=== PATIENT | female | born 1935 | race Hispanic/Latino ===

== ENCOUNTER 2017-06-16 23:30 | Inpatient (IN) | payer MEDICARE ==
[2017-06-16 23:38] VITALS: O2SAT 99
--- NOTE | 2017-06-16 23:44 | ED PDOC ---
Psych Transfer Clearance - Clearance Statement Clearance Statement: Reviewed vital signs, lab results and transfer papers. Patient clinically stable for psychiatric admission.
[2017-06-17] MEDS ORDERED: Magnesium Hydroxide Susp 30 ml UD PO PRN (00:20)
[2017-06-17] MEDS ORDERED: Alum-Mag Hydrox-Simethicone Susp (30 mL) PO PRN (00:20)
[2017-06-17] MEDS ORDERED: Bismuth Subsalicylate 262 mg/15 ml Sus (240 ml) PO PRN (00:20)
--- NOTE | 2017-06-17 00:42 | PCM.BM ---
<Fabricio Rodrigez - Last Filed: 06/17/17 00:38> Treatment Plan Problems - Problems identified on initial assessmt Hopelessness/Helplessness Date Initiated: 06/17/17 Time Initiated: 00:39 Assessment reference: NA Status: Active Treatment assets and liabiliti Patient Assests: adapts well, cooperative, resourceful, self-reliant, ADL independent, good support system, negotiates basic needs Patient Liabilities: medical problems - Milieu Protocol Maintain good personal hygiene: every shift Encourage regular showers, every shift Remind patient to perform daily oral care, every shift Assist patient to perform ADL's Maintain personal safety: daily Educate patient to report safety concerns to staff, daily Monitor environment for contraband/sharps Medication safety: Monitor for expected outcome, potential side effects: daily, Assess barriers to learning: daily, Assess readiness for medication education: daily <Estefani Fernández - Last Filed: 06/18/17 09:19> - Diagnosis (1) Major depressive disorder Status: Acute Interventions: Medication management, Individual and group therapy, Psychoeducation 06/18/17 09:19 <Caitlyn Love - Last Filed: 06/18/17 15:42> Family Contact Family involvement: Family/SO is involved Family contact: Patient agrees to contact, Family has been contacted by patient , Telephone contact initiated by staff Family contact name: Niyah - daughter Family contacted how many times per week?: 2 Family contact comment: [phone] - Outside Agency Dr. Trell Waters MD Care involvment: Information-sharing Agency contact number: - Goals for Treatment Patient goals for treatment: Pt to be encouraged to attend activity and clinical groups 3-5x per week to identify at least 2 contributing factors to depression and suicide attempt. Psycho-education to be provided to patient/ family regarding benefits of medications and treatment adherence. Pt to be encouraged to participate in group milieu to develop effective coping skills to reduce depression and free of suicide ideation. Coordinate discharge resource needs by providing referral for psychiatric treatment follow up in the community. Discharge/Continuing Care - Education Needs Education Needs: Family Medication, Family Diagnosis/Disease Process, Family Community resources, Family Activities of Daily Living, Family Aftercare Safety Plan, Patient Medication, Patient Diagnosis/Disease Process, Patient Community resources, Patient Activities of Daily Living, Patient Aftercare Safety Plan - Discharge Discharge Criteria: Tolerates medication w/o severe side effects, Free of Suicidal thoughts, Normal sleep pattern, Ability to care for self, Reduction of target symptoms Discharge to:: Home - Additional Comments 06/18/17 15:34 Pt seen and discussed in team meeting. Reason for hospitalization reviewed and discussed. Pt reported feeling depressed for 20 years; however, worsened since her one year ago. Pt also reported feeling highly anxious and lonely at home. Pt reported that her anxiety has gotten to bad that there are times she feels hopeless and helpless. Pt reported passive wishes in the past due to worsened anxiety. Pt's medications reviewed and discussed. Pt's social and medical issues reviewed and discussed. Pt reported being linked to a psychiatrist [facility], Dr. Jt MD. Pt reported medication and tx compliance. Tx plan reviewed and discussed. pt agreeable. SW to contact daughter for collateral. [employer] will continue to follow case. - Treatment Team Participation Discussed with Family/SO: No Was Patient/Family/SO present at Treatment Team Meeting: Yes
[2017-06-17 08:08] LABS: HEMOGLOBIN 13.8 g/dL (12.0-16.0); MEAN CELL VOLUME 94.5 fl (81.0-99.0); MEAN CORPUSCULAR HEMOGLOBIN 32.2 pg (27.0-31.0); RBC 4.29 Mil/uL (3.80-5.20); RED CELL DISTRIBUTION WIDTH 14.2 % (11.5-14.5); WHITE BLOOD COUNT 8.5 K/uL (4.8-10.8)
[2017-06-17 08:31] LABS: T4 8.89 ug/dl (5.5-11.0)
[2017-06-17 08:35] LABS: IRON 49 ug/dL (37-170)
[2017-06-17 08:40] LABS: ALB/GLOB RATIO 1.5 (1.0-2.1); ALBUMIN 3.7 g/dL (3.5-5.0); ALT/SGPT 41 U/L (9-52); AST/SGOT 18 U/L (14-36); BLOOD UREA NITROGEN 20 mg/dl (7-17); CALCIUM 9.2 mg/dL (8.4-10.2); GFR AFRICAN-AMERICAN > 60; GFR NON-AFRICAN AMERICAN > 60; HDL CHOLESTEROL 37 MG/DL (30-70); LDL CHOLESTEROL 83 mg/dL (0-129)
[2017-06-17 08:44] LABS: % IRON SATURATION 19 % (20-55); TOTAL IRON BINDING CAPACITY 265 ug/dL (250-450)
[2017-06-17] MEDS: Levothyroxine 88 MCG TAB PO SCH (11:33)
--- NOTE | 2017-06-17 17:00 | PCM.PSYCH ---
Initial Psychiatric Evaluation - Initial Psychiatric Evaluation Type of Admission: Voluntary Legal Status: Capacity Chief Complaint (in patient's own words): i am very anxious Patient's Reaction to Hospitalization: pt is upset History of Present Illness and Precipitating Events: This is the t [facility] admission for this 82 yr old female with h/o depression and anxiety and was hospitalized twice at [facility] in past month once for severe anxiety and depression and was prescribed wellbutrin ,seroquel and remeron which pt claims has not been working and pt has been increasingly anxious with panic attacks in past week and was seen by psychiatrist on sunday and sent to [facility] because pt has been having thoughts about overdosing on her pills.pt reports the of a year ago as a trigger and feels lonely and overwhelmed with depression and panic attacks in past week pt reports h/o suicidal attempt by overdose 3 years ago Current Medications: Active Medications Generic Name Dose Route Start Last Admin Trade Name Freq PRN Reason Stop Dose Admin Acetaminophen 650 mg 06/17/17 00:20 Tylenol 325mg Tab PO Q4 PRN Pain, moderate (4-7) Al Hydrox/Mg Hydrox/Simethicone 30 ml 06/17/17 00:20 Maalox Plus 30 Ml PO Q4 PRN Dyspepsia Atorvastatin Calcium 40 mg 06/17/17 22:00 Lipitor PO HS DANITA Bismuth Subsalicylate 524 mg 06/17/17 00:20 Pepto-Bismol PO Q4 PRN Diarrhea Docusate Sodium 200 mg 06/17/17 09:00 06/17/17 11:32 Colace PO 200 mg DAILY DANITA Administration Home Med 0.1 mg 06/17/17 09:00 Estradiol [Estrace] VG DAILY DANITA Levothyroxine Sodium 88 mcg 06/17/17 06:30 06/17/17 11:33 Synthroid PO 88 mcg DAILY@0630 DANITA Administration Lorazepam 0.5 mg 06/17/17 00:20 Ativan PO 07/01/17 00:21 HS PRN Insomnia Lorazepam 0.5 mg 06/17/17 00:20 06/17/17 11:32 Ativan PO 07/01/17 00:21 0.5 mg Q6 PRN Administration Anixety/Agitation Magnesium Hydroxide 30 ml 06/17/17 00:20 Milk Of Magnesia PO HS PRN Constipation Sennosides 17.2 mg 06/17/17 22:00 Senokot Tab PO HS DANITA Past Psychiatric History - Past Psychiatric History Previous Treatment History: Inpatient At [facility]: [facility] Nature of Treatment: for depression History of Abuse: pt denies History of ETOH/Drug Use: pt denies History of Family Illness: not known Pertinent Medical Hx (Current Medical&Sleep Prob, Allergies): Allergies Allergy/AdvReac Type Severity Reaction Status Date / Time No Known Allergies Allergy Verified 06/16/17 23:35 Atorvastatin [Lipitor] 40 mg PO 06/17/17 Bupropion HCl [Wellbutrin XL] 300 mg PO 06/17/17 Docusate [Colace] 200 mg PO 06/17/17 Estradiol [Estrace] 0.1 mg VG 06/17/17 Levothyroxine [Synthroid] 88 mcg PO 06/17/17 Mirtazapine [Remeron Soltab] 45 mg PO 06/17/17 QUEtiapine [SEROquel] 300 mg PO 06/17/17 Sennosides [Senna Laxative] 17.2 mg PO 06/17/17 Review of Systems - Review of Systems All systems: reviewed and no additional remarkable complaints except Mental Status Examination - Personal Presentation Personal Presentation: Looks stated age - Affect Affect: Constricted - Motor Activity Motor Activity: Calm - Reliability in Providing Information Reliability in Providing Information: Fair - Speech Speech: Relevant - Mood Mood: Anxious - Formal Thought Process Formal Thought Process: No Impairment - Obsessions/Compulsions Obsessions: No Compulsions: No - Cognitive Functions Orientation: Person, Place, Situation, Time Attention/Concentration: Easily distracted Abstract Thinking: As evidence by abstract perception of proverbs Estimate of Intelligence: Average Judgement: Imparied, as evidence by: Poor judgement, Imparied, as evidence by: Lack of insight into illness DSM 5 DX - DSM 5 DSM 5 Diagnosis: Major depression,recurrent severe without psychotic features - Recommended/Plan of Treatment Treatment Recommendations and Plan of Treatment: Pt has agreed to start cymbalta 30 mg as it helped her in past and will continue remeron 30 mg hs and will d/c wellbutrin as it was making her more anxious and did not help and will engage pt in therapy and groups. hospitalist consult.
[2017-06-17 19:00] LABS: FOLATE 14.5 ng/mL
[2017-06-17] MEDS: ESTRADIOL VG SCH (21:14)
[2017-06-17 21:47] LABS: SQUAMOUS EPITHIAL 1 /hpf (0-5); URINE BILIRUBIN NEGATIVE (NEGATIVE); URINE BLOOD NEGATIVE (NEGATIVE); URINE CLARITY SLIGHTY-CLOUDY (Clear); URINE COLOR YELLOW (YELLOW); URINE GLUCOSE (UA) NEG (Normal); URINE LEUKOCYTE ESTERASE NEG Leu/uL (Negative); URINE PROTEIN NEGATIVE (NEGATIVE); URINE UROBILINOGEN 0.2-1.0 mg/dL (0.2-1.0)
[2017-06-18] MEDS: Levothyroxine 88 MCG TAB PO SCH (06:05)
[2017-06-18] MEDS: ESTRADIOL VG SCH (09:10)
[2017-06-18] MEDS: TRIMETHOPRIM 100 MG PO SCH (09:11)
--- NOTE | 2017-06-18 11:31 | PCM.PYCHPN ---
Psychiatric Progress Note - Psychiatric Progress Note Patient seen today, length of contact: Patient evaluated, case discussed with team, chart reviewed Patient Chief Complaint: Patient reports that she continues to feel depressed and anxious. She does not recall which medications she took in the past. She states that she is afraid that if she has a panic attack at home that she will want to do something like overdose on pills. She reports a history of suicide attempt by overdose. She states that she feels lonely at home but is uncertain if she wants to move in with her son. Medication Change: No Medical Record Reviewed: Yes Consults ordered or reviewed: Medicine consult Mental Status Examination - Cognitive Function Orientation: Person, Place, Situation, Time Memory: Impaired Fund of Knowledge: WNL Decription of patient's judgement and insights: Poor I/J - Mood Mood: Depressed, Anxious - Affect Affect: Constricted, Depressed - Speech Speech: Appropriate - Formal Thought Process Formal Thought Process: No Impairment Psychotic Thoughts and Behaviors: NO AH/VH/paranoia/delusions - Suicidal Ideation Suicidal Ideation: No - Homicidal Ideation Homicidal Ideation: No Goal/Treatment Plan - Goal/Treatment Plan Need for Continued Stay: Remain at risks for inpatient hospitalization, Severe depression anxiety, Discharge may exacerbated symptoms Progress Toward Problem(s) and Goals/Treatment Plan: Major Depressive Disorder; Generalized Anxiety Disorder -Continue Remeron and Cymbalta -Will consider treatment with a benzodiazepine -Individual and group therapy -Medication management -Obtain collateral history -Disposition planning Estimated Date of D/C: 06/25/17
[2017-06-19] MEDS: Levothyroxine 88 MCG TAB PO SCH (07:53)
[2017-06-19] MEDS: TRIMETHOPRIM 100 MG PO SCH (08:40)
[2017-06-19] MEDS: ESTRADIOL VG SCH (08:41)
--- NOTE | 2017-06-19 10:14 | PCM.PYCHPN ---
Psychiatric Progress Note - Psychiatric Progress Note Patient seen today, length of contact: Patient evaluated, case discussed with team, chart reviewed Patient Chief Complaint: I'm depressed Problems Identified/Issues Discussed: Patient reports that she continues to feel depressed and anxious. She feels lonely at home and is worried about harming herself if she is discharged from the hospital. He reports difficulty getting anxious thoughts out of her head. Medication Change: No Medical Record Reviewed: Yes Consults ordered or reviewed: Medicine consult Mental Status Examination - Cognitive Function Orientation: Person, Place, Situation, Time Memory: Impaired Fund of Knowledge: WNL Decription of patient's judgement and insights: Poor I/J - Mood Mood: Depressed, Anxious - Affect Affect: Constricted, Depressed - Speech Speech: Appropriate - Formal Thought Process Formal Thought Process: No Impairment Psychotic Thoughts and Behaviors: NO AH/VH/paranoia/delusions - Suicidal Ideation Suicidal Ideation: No - Homicidal Ideation Homicidal Ideation: No Goal/Treatment Plan - Goal/Treatment Plan Need for Continued Stay: Remain at risks for inpatient hospitalization, Severe depression anxiety, Discharge may exacerbated symptoms Progress Toward Problem(s) and Goals/Treatment Plan: Major Depressive Disorder; Generalized Anxiety Disorder -Continue Remeron and Cymbalta -Will consider treatment with a benzodiazepine -Individual and group therapy -Medication management -Obtain collateral history -Disposition planning Estimated Date of D/C: 06/25/17
--- NOTE | 2017-06-20 08:37 | PCM.PYCHPN ---
Psychiatric Progress Note - Psychiatric Progress Note Patient seen today, length of contact: Patient evaluated, case discussed with team, chart reviewed Patient Chief Complaint: I'm depressed Problems Identified/Issues Discussed: Patient reports that she continues to feel depressed and anxious. She is anxious about what will happen when she leaves the hospital. Collateral history obtained from family by MONIQUE and case discussed w/ patient's family. Medication Change: No Medical Record Reviewed: Yes Consults ordered or reviewed: Medicine consult Mental Status Examination - Cognitive Function Orientation: Person, Place, Situation, Time Memory: Impaired Fund of Knowledge: WNL Decription of patient's judgement and insights: Poor I/J - Mood Mood: Depressed, Anxious - Affect Affect: Constricted, Depressed - Speech Speech: Appropriate - Formal Thought Process Formal Thought Process: No Impairment Psychotic Thoughts and Behaviors: NO AH/VH/paranoia/delusions - Suicidal Ideation Suicidal Ideation: No - Homicidal Ideation Homicidal Ideation: No Goal/Treatment Plan - Goal/Treatment Plan Need for Continued Stay: Remain at risks for inpatient hospitalization, Severe depression anxiety, Discharge may exacerbated symptoms Progress Toward Problem(s) and Goals/Treatment Plan: Major Depressive Disorder; Generalized Anxiety Disorder -Continue Remeron and Cymbalta -Will consider treatment with a benzodiazepine -Individual and group therapy -Medication management -Obtain collateral history -Disposition planning Estimated Date of D/C: 06/25/17
[2017-06-20] MEDS: Levothyroxine 88 MCG TAB PO SCH (08:52)
[2017-06-20] MEDS: ESTRADIOL VG SCH (08:54)
[2017-06-20] MEDS: TRIMETHOPRIM 100 MG PO SCH (08:54)
--- NOTE | 2017-06-20 12:12 | CP.PCM.CON ---
History of Present Illness - History of Present Illness History of Present Illness: " I am very anxious" This is an 82 year old female with past medicah history of hypercholesterolemia , hypothyroidism, anxiety, arthritis, and depression, who presented to the ED due to panic attacks and suicidal ideation. Currently the patient states that she feels well and has had no recent illnesses. She relates that she is still feeling very anxious and depressed. Physically she has no complaints and states she feels well. Review of Systems - Review of Systems Review of Systems: A 12 point review of systems was conducted and found to be negative other than what was mentioned in the HPI. Past Patient History - Infectious Disease Hx of Infectious Diseases: None - Past Medical History & Family History Past Medical History?: Yes Past Family History: Reviewed and not pertinent Pertinent Family History: Brother had IN and CVA in his 80's - Past Social History Smoking Status: Never Smoked Alcohol: None Drugs: Denies - CARDIAC Other/Comment: hyperlipidemia - PULMONARY Hx Respiratory Disorders: No - NEUROLOGICAL Hx Neurological Disorder: No - HEENT Hx HEENT Problems: No - RENAL Hx Chronic Kidney Disease: No - ENDOCRINE/METABOLIC Hx Hypothyroidism: Yes - HEMATOLOGICAL/ONCOLOGICAL Hx Blood Disorders: No - INTEGUMENTARY Hx Dermatological Problems: No - MUSCULOSKELETAL/RHEUMATOLOGICAL Hx Musculoskeletal Disorders: Yes Hx Arthritis: Yes (toes of right foot) Hx Falls: Yes - GASTROINTESTINAL Hx Gastrointestinal Disorders: Yes Hx Constipation: Yes - GENITOURINARY/GYNECOLOGICAL Hx Genitourinary Disorders: Yes Other/Comment: hx hysterectomy 1985 - PSYCHIATRIC Hx Anxiety: Yes Hx Depression: Yes Hx Emotional Abuse: No Hx Physical Abuse: No Hx Sexual Abuse: No Hx Substance Use: No - SURGICAL HISTORY Hx Surgeries: Yes Hx Appendectomy: Yes Hx Cholecystectomy: Yes (1982) Hx Hysterectomy: Yes (1985) Hx Tonsillectomy: Yes - ANESTHESIA Hx Anesthesia: Yes Hx Anesthesia Reactions: No Meds Allergies/Adverse Reactions: Allergies Allergy/AdvReac Type Severity Reaction Status Date / Time No Known Allergies Allergy Verified 06/16/17 23:35 - Medications Medications: Current Medications Acetaminophen (Tylenol 325mg Tab) 650 mg PO Q4 PRN PRN Reason: Pain, moderate (4-7) Al Hydrox/Mg Hydrox/Simethicone (Maalox Plus 30 Ml) 30 ml PO Q4 PRN PRN Reason: Dyspepsia Atorvastatin Calcium (Lipitor) 40 mg PO HS DANITA Last Admin: 06/18/17 21:11 Dose: 40 mg Bismuth Subsalicylate (Pepto-Bismol) 524 mg PO Q4 PRN PRN Reason: Diarrhea Docusate Sodium (Colace) 200 mg PO DAILY [facility] Last Admin: 06/19/17 08:40 Dose: 200 mg Duloxetine HCl (Cymbalta) 30 mg PO DAILY [facility] Last Admin: 06/19/17 08:41 Dose: 30 mg Home Med (Estradiol [Estrace]) 0.1 mg VG DAILY [facility] Last Admin: 06/19/17 08:41 Dose: Not Given Home Med (Trimethoprim [Trimethoprim]) 100 mg PO DAILY [facility] Last Admin: 06/19/17 08:40 Dose: 100 mg Levothyroxine Sodium (Synthroid) 88 mcg PO DAILY@0630 [facility] Last Admin: 06/19/17 07:53 Dose: 88 mcg Lorazepam (Ativan) 0.5 mg PO HS PRN PRN Reason: Insomnia Stop: 07/01/17 00:21 Lorazepam (Ativan) 0.5 mg PO Q6 PRN PRN Reason: Anixety/Agitation Stop: 07/01/17 00:21 Last Admin: 06/17/17 11:32 Dose: 0.5 mg Magnesium Hydroxide (Milk Of Magnesia) 30 ml PO HS PRN PRN Reason: Constipation Mirtazapine (Remeron) 45 mg PO [facility] Last Admin: 06/18/17 21:15 Dose: 45 mg Sennosides (Senokot Tab) 17.2 mg PO [facility] Last Admin: 06/18/17 21:11 Dose: 17.2 mg Physical Exam - Additional Findings Additional findings: Physical exam: Constitutional- cooperative, awake, alert Head- NCAT, PERRL Eye- PERRL, EOMI ENT- normal exam, MMM. Neck- normal inspection, supple, no JVD Respiratory- CTAB, no wheezes rales rhonchi Cardiovascular- RRR, +S1, +S2 no MRG GI/Abdominal- normal bowel sounds, soft, no mass, no hsm Skin- warm, dry Extremities Exam- normal capillary refill, normal inspection Neurological Exam- alert, awake, oriented Psych- Depressed mood, flat affect. Results - Vital Signs Recent Vital Signs: Last Vital Signs Temp 97.2 F L 06/19/17 05:54 Pulse 70 06/19/17 05:54 Resp 19 06/19/17 05:54 BP 133/70 06/19/17 05:54 Pulse Ox 99 06/16/17 23:35 - Labs Result Diagrams: 06/17/17 07:00 06/17/17 07:00 Assessment & Plan - Assessment and Plan (Free Text) Plan: ASSESSMENT/PLAN 1) Hypercholesterolemia - Chol 149, Triglycerides 104, LDL 83, HLD 37 on statin - continue Lipitor 40 mg po HS 2) Hypothyroidism - TSH 4.08, Free T4 1.01, T4 8.89 - Continue Synthroid 88 mcg po daily 3) Depression/Anxiety - Cymbalta - Remeron - management as per primary
[2017-06-21] MEDS: ESTRADIOL VG SCH (08:19)
[2017-06-21] MEDS: TRIMETHOPRIM 100 MG PO SCH (08:20)
[2017-06-21] MEDS: Levothyroxine 88 MCG TAB PO SCH (08:20)
--- NOTE | 2017-06-21 12:07 | PCM.PYCHPN ---
Psychiatric Progress Note - Psychiatric Progress Note Patient seen today, length of contact: Patient evaluated, case discussed with team, chart reviewed Patient Chief Complaint: I'm depressed Problems Identified/Issues Discussed: Patient reports that she continues to feel depressed and anxious. We discussed coping strategies to deal with her feelings of loneliness, depression and anxiety. She is anxious about what will happen when she leaves the hospital. No current AH/VH/SI/HI. Medication Change: No Medical Record Reviewed: Yes Consults ordered or reviewed: Medicine consult Mental Status Examination - Cognitive Function Orientation: Person, Place, Situation, Time Memory: Impaired Fund of Knowledge: WNL Decription of patient's judgement and insights: Poor I/J - Mood Mood: Depressed, Anxious - Affect Affect: Constricted, Depressed - Speech Speech: Appropriate - Formal Thought Process Formal Thought Process: No Impairment Psychotic Thoughts and Behaviors: NO AH/VH/paranoia/delusions - Suicidal Ideation Suicidal Ideation: No - Homicidal Ideation Homicidal Ideation: No Goal/Treatment Plan - Goal/Treatment Plan Need for Continued Stay: Remain at risks for inpatient hospitalization, Severe depression anxiety, Discharge may exacerbated symptoms Progress Toward Problem(s) and Goals/Treatment Plan: Major Depressive Disorder; Generalized Anxiety Disorder -Continue Remeron and Cymbalta -Individual and group therapy -Medication management -Case discussed w/ patient's family -Disposition planning Estimated Date of D/C: 06/25/17
[2017-06-22] MEDS: Levothyroxine 88 MCG TAB PO SCH (08:28)
[2017-06-22] MEDS: TRIMETHOPRIM 100 MG PO SCH (08:28)
[2017-06-22] MEDS: ESTRADIOL VG SCH ×2 (08:30→08:49)
--- NOTE | 2017-06-22 10:04 | PCM.PYCHPN ---
Psychiatric Progress Note - Psychiatric Progress Note Patient seen today, length of contact: Patient evaluated, case discussed with team, chart reviewed Patient Chief Complaint: I'm anxious Problems Identified/Issues Discussed: Patient reports that she continues to feel anxious. We discussed coping strategies to deal with her feelings of loneliness, depression and anxiety. She is not agreeable to moving in with her son. No current AH/VH/SI/HI. Medication Change: Yes (Increase Cymbalta) Medical Record Reviewed: Yes Consults ordered or reviewed: Medicine consult, Psychology consult Mental Status Examination - Cognitive Function Orientation: Person, Place, Situation, Time Fund of Knowledge: [facility] Decription of patient's judgement and insights: Poor I/J - Mood Mood: Depressed, Anxious - Affect Affect: Constricted, Depressed - Speech Speech: Appropriate - Formal Thought Process Formal Thought Process: No Impairment Psychotic Thoughts and Behaviors: NO AH/VH/paranoia/delusions - Suicidal Ideation Suicidal Ideation: No - Homicidal Ideation Homicidal Ideation: No Goal/Treatment Plan - Goal/Treatment Plan Need for Continued Stay: Severe depression anxiety, Discharge may exacerbated symptoms Progress Toward Problem(s) and Goals/Treatment Plan: Major Depressive Disorder; Generalized Anxiety Disorder -Continue Remeron -Increase Cymbalta -Individual and group therapy -Medication management -Case discussed w/ patient's family -Disposition planning- likely discharge on Sunday Estimated Date of D/C: 06/25/17
--- NOTE | 2017-06-22 12:29 | CP.PCM.CON ---
History of Present Illness - History of Present Illness History of Present Illness: Pt is an 82 year old female admitted to the geropsych unit and referred to the credit underwriter for evaluation. ON the DRS, pt scored an overall score of 99. Pt scored in the Deficient Range on Attention, Conceptualization, Memory, and Initiation tasks. Her Construction skills fell within normal limits. Pt became increasingly defensive on testing when confronted with challenges. Overall 99 Attention 28 Initiation 26 Construction 4 Conceptualization 27 Memory 14 Deficits evident and patient should not engage in higher order tasks such as financial mangement, medication organization or driving. Thank you for this referral, Dr. Hampton Past Patient History - Infectious Disease Hx of Infectious Diseases: None - Past Medical History & Family History Past Medical History?: Yes Past Family History: Reviewed and not pertinent - Past Social History Smoking Status: Never Smoked Alcohol: None Drugs: Denies - CARDIAC Other/Comment: hyperlipidemia - PULMONARY Hx Respiratory Disorders: No - NEUROLOGICAL Hx Neurological Disorder: No - HEENT Hx HEENT Problems: No - RENAL Hx Chronic Kidney Disease: No - ENDOCRINE/METABOLIC Hx Hypothyroidism: Yes - HEMATOLOGICAL/ONCOLOGICAL Hx Blood Disorders: No - INTEGUMENTARY Hx Dermatological Problems: No - MUSCULOSKELETAL/RHEUMATOLOGICAL Hx Musculoskeletal Disorders: Yes Hx Arthritis: Yes (toes of right foot) Hx Falls: Yes - GASTROINTESTINAL Hx Gastrointestinal Disorders: Yes Hx Constipation: Yes - GENITOURINARY/GYNECOLOGICAL Hx Genitourinary Disorders: Yes Other/Comment: hx hysterectomy 1985 - PSYCHIATRIC Hx Anxiety: Yes Hx Depression: Yes Hx Emotional Abuse: No Hx Physical Abuse: No Hx Sexual Abuse: No Hx Substance Use: No - SURGICAL HISTORY Hx Surgeries: Yes Hx Appendectomy: Yes Hx Cholecystectomy: Yes (1982) Hx Hysterectomy: Yes (1985) Hx Tonsillectomy: Yes - ANESTHESIA Hx Anesthesia: Yes Hx Anesthesia Reactions: No Meds Allergies/Adverse Reactions: Allergies Allergy/AdvReac Type Severity Reaction Status Date / Time No Known Allergies Allergy Verified 06/16/17 23:35 - Medications Medications: Current Medications Acetaminophen (Tylenol 325mg Tab) 650 mg PO Q4 PRN PRN Reason: Pain, moderate (4-7) Al Hydrox/Mg Hydrox/Simethicone (Maalox Plus 30 Ml) 30 ml PO Q4 PRN PRN Reason: Dyspepsia Atorvastatin Calcium (Lipitor) 40 mg PO HS [facility] Last Admin: 06/21/17 21:04 Dose: 40 mg Bismuth Subsalicylate (Pepto-Bismol) 524 mg PO Q4 PRN PRN Reason: Diarrhea Docusate Sodium (Colace) 200 mg PO DAILY [facility] Last Admin: 06/22/17 08:29 Dose: 200 mg Duloxetine HCl (Cymbalta) 40 mg PO DAILY [facility] Home Med (Estradiol [Estrace]) 0.1 mg VG DAILY [facility] Last Admin: 06/22/17 08:49 Dose: 0.1 mg Home Med (Trimethoprim [Trimethoprim]) 100 mg PO DAILY [facility] Last Admin: 06/22/17 08:28 Dose: 100 mg Levothyroxine Sodium (Synthroid) 88 mcg PO DAILY@0630 [facility] Last Admin: 06/22/17 08:28 Dose: 88 mcg Lorazepam (Ativan) 0.5 mg PO HS PRN PRN Reason: Insomnia Stop: 07/01/17 00:21 Lorazepam (Ativan) 0.5 mg PO Q6 PRN PRN Reason: Anixety/Agitation Stop: 07/01/17 00:21 Last Admin: 06/17/17 11:32 Dose: 0.5 mg Magnesium Hydroxide (Milk Of Magnesia) 30 ml PO HS PRN PRN Reason: Constipation Mirtazapine (Remeron) 45 mg PO [facility] Last Admin: 06/21/17 21:03 Dose: 45 mg Sennosides (Senokot Tab) 17.2 mg PO [facility] Last Admin: 06/21/17 21:04 Dose: 17.2 mg Results - Vital Signs Recent Vital Signs: Last Vital Signs Temp 97.5 F L 06/22/17 05:56 Pulse 70 06/22/17 05:56 Resp 18 06/22/17 05:56 BP 138/79 06/22/17 05:56 Pulse Ox 99 06/16/17 23:35 - Labs Result Diagrams: 06/17/17 07:00 06/17/17 07:00
[2017-06-23] MEDS: Levothyroxine 88 MCG TAB PO SCH (06:07)
[2017-06-23] MEDS: TRIMETHOPRIM 100 MG PO SCH (08:42)
[2017-06-23] MEDS: ESTRADIOL VG SCH (08:55)
--- NOTE | 2017-06-23 11:38 | PCM.PYCHPN ---
Psychiatric Progress Note - Psychiatric Progress Note Patient seen today, length of contact: Patient evaluated, case discussed with team, chart reviewed Patient Chief Complaint: pt seen in room reports beginning to feel a little less depressed denies side effects medications team reports pt has been adherent with medications. seen about unit participating in milieu therapy. sleeping improved appetite. Problems Identified/Issues Discussed: alteration in mood alteration in self care Medical Problems: per chart Diagnostic Results: per psychiatry per medicine per nursing per social insurance specialist per chart Medication Change: Yes (Increase Cymbalta) Medical Record Reviewed: Yes Consults ordered or reviewed: per chart Mental Status Examination - Cognitive Function Orientation: Person, Place, Situation, Time Attention: WNL Concentration: WNL Association: WNL Fund of Knowledge: WN Decription of patient's judgement and insights: impaired - Mood Mood: Depressed, Anxious - Affect Affect: Constricted, Depressed - Speech Speech: Appropriate - Formal Thought Process Formal Thought Process: No Impairment - Suicidal Ideation Suicidal Ideation: No - Homicidal Ideation Homicidal Ideation: No Goal/Treatment Plan - Goal/Treatment Plan Need for Continued Stay: Severe depression anxiety, Discharge may exacerbated symptoms Progress Toward Problem(s) and Goals/Treatment Plan: inpt milieu vital signs and clinical observation per protocol and per status adjust meds per status get up slowly falls precautions discharge planning in progress Estimated Date of D/C: 06/25/17 - Smoking Cessation Smoking Cessation Initiated: No Reason for not providing: pt defers
[2017-06-24] MEDS: Levothyroxine 88 MCG TAB PO SCH (06:22)
[2017-06-24] MEDS: ESTRADIOL VG SCH (08:23)
[2017-06-24] MEDS: TRIMETHOPRIM 100 MG PO SCH (08:23)
--- NOTE | 2017-06-24 12:51 | PCM.PYCHPN ---
Psychiatric Progress Note - Psychiatric Progress Note Patient seen today, length of contact: Patient evaluated, case discussed with team, chart reviewed Patient Chief Complaint: pt seen in room then in unit, reports crying at times , received prn rx, received supportive counseling, denies acute stressors. denies side effects medications team reports pt has been adherent with medications. seen about unit participating in milieu therapy. sleeping improved appetite. Problems Identified/Issues Discussed: alteration in mood alteration in self care Medical Problems: per chart Diagnostic Results: per psychiatry per medicine per nursing per hospital social worker per chart DSM 5 Symptoms Update: alteration in mood Medication Change: No Medical Record Reviewed: Yes Consults ordered or reviewed: pt being seen by hospitalist Mental Status Examination - Cognitive Function Orientation: Person, Place, Situation, Time Attention: WNL Concentration: WNL Association: WNL Fund of Knowledge: WN Decription of patient's judgement and insights: impaired - Mood Mood: Depressed, Anxious - Affect Affect: Constricted, Depressed - Speech Speech: Appropriate - Formal Thought Process Formal Thought Process: No Impairment - Suicidal Ideation Suicidal Ideation: No - Homicidal Ideation Homicidal Ideation: No Goal/Treatment Plan - Goal/Treatment Plan Need for Continued Stay: Severe depression anxiety, Discharge may exacerbated symptoms Progress Toward Problem(s) and Goals/Treatment Plan: inpt milieu vital signs and clinical observation per protocol and per status adjust meds per status get up slowly falls precautions supportive counseling/brief cognitive behavioral therapy discharge planning in progress Estimated Date of D/C: 06/25/17 - Smoking Cessation Smoking Cessation Initiated: No Reason for not providing: defers
[2017-06-24 17:10] VITALS: RESP 20
[2017-06-25 05:55] VITALS: BP 131/73; PULSE 65; TEMP 97.2
[2017-06-25] MEDS: Levothyroxine 88 MCG TAB PO SCH (05:56)
--- NOTE | 2017-06-25 08:36 | PCM.PYCHDC ---
Mental Status Examination - Mental Status Examination Orientation: Person, Place, Situation Memory: Impaired Mood: Neutral Affect: Broad Speech: Appropriate Attention: Poor Association: WNL Fund of Knowledge: WNL Formal Thought Process: No Impairment Description of patient's judgement and insight: Improving I/J; poor insight into cognitive deficits Psychotic Thoughts and Behaviors: NO AH/VH/paranoia/delusions Suicidal Ideation: No Current Homicidal Ideation?: No Discharge Summary - Discharge Note Reason for Hospitalization: 82 yo female admitted w/ worsening depression/anxiety and suicidal ideation to overdose on pills. NO AH/VH/paranoia/delusions. +Memory deficits. Psychiatric History (includes Medical, Family, Personal Hx): for depression Consultations:: List each consultation separately and include: 1. Reason for request. 2. Findings. 3. Follow-up Consultations: Medicine consult, Psychology consult Summary of Hospital Course include:: 1. Description of specific treatment plan utilized for patients during their course of treatmen. 2. Summarize the time- course for resolution of acute symptoms and/or regressed behaviors. 3. Describe issues identified and worked on during hospitalization. 4. Describe medication utilized. 5. Describe medical problems identified and treated. 6. Reassessment of suicide risk Summary of Hospital Course: Patient was admitted to the geriatric psychiatry unit. Individual and group therapy were provided. Patient was stabilized on Cymbalta and Remeron. Psychoeducation provided that patient is at increased risks of falls and confusion, so benzodiazepines were stopped. Psychoeducation provided on the importance of psychotherapy and compliance with medications. Case discussed w/ family who will be supervising the patient upon discharge. Patient has poor insight into her memory deficits and is not agreeable to taking medications for dementia. Patient's memory deficits have been discussed with the patient's family. - Diagnosis (1) Major depressive disorder Current Visit: Yes Status: Acute - Final Diagnosis (DSM 5) Condition upon Discharge: STABLE DSM 5: Major Depressive Disorder; Generalized Anxiety Disorder; Dementia Disposition: HOME/ ROUTINE Follow-up Treatment Plan: Major Depressive Disorder; Generalized Anxiety Disorder; Dementia -Continue Remeron and Cymbalta -Discharge to home under the care of her family w/ outpatient follow-up Prescriptions/Medication Reconciliation: DULoxetine [Cymbalta] 40 mg PO DAILY #60 ecc Mirtazapine [Remeron] 45 mg PO HS #30 tablet - Smoking Cessation Smoking Cessation Medication prescribed: No Reason for not providing: Not indicated - Antipsychotic Medications Pt discharged on 2 or more routine antipsychotic medications: No
[2017-06-25] MEDS: ESTRADIOL VG SCH (09:20)
[2017-06-25] MEDS: TRIMETHOPRIM 100 MG PO SCH (09:20)
--- NOTE | 2017-06-25 12:06 | PCM.BM ---
Treatment Plan Problems - Problems identified on initial assessmt Hopelessness/Helplessness Date Initiated: 06/17/17 Time Initiated: 00:39 Assessment reference: NA Status: Active Treatment assets and liabiliti Patient Assests: adapts well, cooperative, resourceful, self-reliant, ADL independent, good support system, negotiates basic needs Patient Liabilities: medical problems - Milieu Protocol Maintain good personal hygiene: every shift Encourage regular showers, every shift Remind patient to perform daily oral care, every shift Assist patient to perform ADL's Maintain personal safety: daily Educate patient to report safety concerns to staff, daily Monitor environment for contraband/sharps Medication safety: Monitor for expected outcome, potential side effects: daily, Assess barriers to learning: daily, Assess readiness for medication education: daily Milieu Narrative: Major Depressive Disorder; Generalized Anxiety Disorder; Dementia -Continue Remeron and Cymbalta -Discharge to home under the care of her family w/ outpatient follow-up Family Contact Family involvement: Family/SO is involved Family contact: Patient agrees to contact, Family has been contacted by patient , Telephone contact initiated by staff Family contact name: Niyah - daughter Family contacted how many times per week?: 2 Family contact comment: [phone] - Outside Agency Dr. Trell Waters MD Care involvment: Information-sharing Agency contact number: - Goals for Treatment Patient goals for treatment: Pt to be encouraged to attend activity and clinical groups 3-5x per week to identify at least 2 contributing factors to depression and suicide attempt. Psycho-education to be provided to patient/ family regarding benefits of medications and treatment adherence. Pt to be encouraged to participate in group milieu to develop effective coping skills to reduce depression and free of suicide ideation. Coordinate discharge resource needs by providing referral for psychiatric treatment follow up in the community. Discharge/Continuing Care - Education Needs Education Needs: Family Medication, Family Diagnosis/Disease Process, Family Community resources, Family Activities of Daily Living, Family Aftercare Safety Plan, Patient Medication, Patient Diagnosis/Disease Process, Patient Community resources, Patient Activities of Daily Living, Patient Aftercare Safety Plan - Discharge Discharge Criteria: Tolerates medication w/o severe side effects, Free of Suicidal thoughts, Normal sleep pattern, Ability to care for self, Reduction of target symptoms Discharge to:: Home - Additional Comments 06/18/17 15:34 Pt seen and discussed in team meeting. Reason for hospitalization reviewed and discussed. Pt reported feeling depressed for 20 years; however, worsened since her one year ago. Pt also reported feeling highly anxious and lonely at home. Pt reported that her anxiety has gotten to bad that there are times she feels hopeless and helpless. Pt reported passive wishes in the past due to worsened anxiety. Pt's medications reviewed and discussed. Pt's social and medical issues reviewed and discussed. Pt reported being linked to a psychiatrist our of [facility], Dr. Jt MD. Pt reported medication and tx compliance. Tx plan reviewed and discussed. pt agreeable. SW to contact daughter for collateral. Glass Setter will continue to follow case. - Treatment Team Participation Patient/Family/SO Statement: Major Depressive Disorder; Generalized Anxiety Disorder; Dementia -Continue Remeron and Cymbalta -Discharge to home under the care of her family w/ outpatient follow-up Discussed with Family/SO: No Was Patient/Family/SO present at Treatment Team Meeting: Yes Treatment Plan Review Patient participation: Yes Family/SO/Caregiver participation: Yes (Via telephone w/ daughterNiyah)) Additional Comments: Pt seen and reviewed in team meeting. Pt reported feeling anxious about returning home. Pt requesting to be provided with a PRN prescription for "something to help me with my anxiety if i get it at home." Pt provided with psycho-education regarding medications and the different coping skills to use at home if she becomes anxious. Attending psychiatrist reviewed medications with pt. Pt advised of neuropsychological testing score/results and advise that it is not recommended that she continue to drive anymore. Pt stated 'I don't like driving anyway." Pt's after care plan and treatment with [facility] IOP reviewed. Pt advised that both her daughter and son want to help but she has to be able to accept heir help. Pt is currently rejecting help. Pt advised that she will be discharged tis afternoon and that her son will pick her up after 1pm. - Problem Hopelessness/Helplessness Date Initiated: 06/16/17 Time Initiated: 00:39 Progress toward outcomes: improved (Pt is less anxious and denying SI.) - Discharge / Continuing Care Discharge to:: Home, With Family Behavioral Health Services: [facility] hospital (Pt scheduled to start IOP on 07/02 at [facility]) Health Needs: Follow up care/test, Doctor appointments, Nutritional, Medications /Rx, Recreational/Social
== END 2017-06-25 15:35 | disposition home or self-care (01) | DRG 881 ==
LOC: H.ER 23:30 → H.STEP 23:44
PROVIDERS: ADMIT Psychiatry & Neurology Psychiatry; ATTEND Psychiatry & Neurology Psychiatry
PROC: GZHZZZZ Group Psychotherapy (ICD-10-PCS; principal; 2017-06-16)
DX: F32.9 Major depressive disorder, single episode, unspecified (principal); R45.851 Suicidal ideations; F41.1 Generalized anxiety disorder; E03.9 Hypothyroidism, unspecified; E78.5 Hyperlipidemia, unspecified; E78.00 Pure hypercholesterolemia, unspecified; F03.90 Unspecified dementia, unspecified severity, without behavioral disturbance, psychotic disturbance, mood disturbance, and anxiety; M19.071 Primary osteoarthritis, right ankle and foot